=== PATIENT | male | born 1970 | race Hispanic/Latino ===

== ENCOUNTER 2018-05-08 15:50 | Emergency (ER) | payer OTHER, SELFPAY | END 2018-05-08 16:35 | disposition home or self-care (01) | LOC: NAV ERS 15:50 | DX: K42.9 Umbilical hernia without obstruction or gangrene (principal) | CPT/HCPCS: 99283 ==

== ENCOUNTER 2018-07-24 21:07 | Emergency (ER) | payer BC, SELFPAY | END 2018-07-24 21:50 | disposition home or self-care (01) | LOC: NAV ERS 21:07 | DX: L76.34 Postprocedural seroma of skin and subcutaneous tissue following other procedure (principal) | CPT/HCPCS: 87070; 87077; 87186; 87205; 99283 ==

== ENCOUNTER 2021-10-16 12:47 | Emergency (ER) | payer BC ==
[2021-10-16] MEDS ORDERED: Acetaminophen 325 MG TAB ONE (13:11)
[2021-10-16] MEDS ORDERED: Ibuprofen 200 MG TAB ONE (13:12)
[2021-10-16 13:35] LABS: #Basophils 0.1 thou/uL (0.0-0.2); #Monocytes 0.9 thou/uL (0.11-0.59); #Neutrophils 6.4 thou/uL (1.40-6.50); %Basophils 1.4 % (0.0-1.0); %Eosinophils 0.3 % (0.0-10.0); %Monocytes 10.4 % (0.0-10.0); %Neutrophils 75.9 % (42.0-75.0); Hemoglobin 15.3 g/dL (14.0-18.0); Mean Corpuscular HGB CONC 32.7 g/dL (32.0-36.0); Mean Corpuscular Hemoglobin 30.5 pg (27.0-31.0); Mean Corpuscular Volume 93.3 fL (78.0-98.0); Mean Platelet Volume 7.5 fL (7.4-10.4); Platelet Count 203 thou/uL (130-400); RBC Distribution Width 10.8 % (11.5-14.5); White Blood Cell (WBC) Count 8.4 thou/uL (4.8-10.8)
[2021-10-16 13:50] LABS: Bilirubin Negative (Negative); Blood, Urine Small (Negative); Clarity Clear (Clear); Glucose, Urine (Dipstick) Negative (Negative); Ketone, Urine Negative (Negative); Leukocyte Negative (Negative); Nitrite Negative (Negative); Protein, Urine (Dipstick) Negative (Neg-Trace); Specific Gravity, Urine 1.025 (1.005-1.030); Urobilinogen 0.2 mg/dL (Less than 2)
[2021-10-16 13:51] LABS: ALT (SGPT) 31 U/L (8-55); AST (SGOT) 26 U/L (5-34); Alkaline Phosphatase 69 U/L (40-110); Anion Gap 12 mmol/L (10-20); BUN (Urea Nitrogen) 9 mg/dL (8.4-25.7); Bilirubin, Total 0.5 mg/dL (0.2-1.2); Calc. Creatinine Clearance 0 mL/min (70-130); Calcium 9.3 mg/dL (7.8-10.44); Carbon Dioxide 24 mmol/L (22-29); Chloride 104 mmol/L (98-107); Globulin 4.1 g/dL (2.4-3.5); Glucose 135 mg/dL (70-105); Potassium 3.5 mmol/L (3.5-5.1); Protein, Total 8.1 g/dL (6.0-8.3); Sodium 136 mmol/L (136-145)
[2021-10-16 13:56] LABS: RBC/HPF 0-3 HPF (0-3); Squamous Epithelial 0-3 HPF (0-3); WBC/HPF None Seen HPF (0-3)
[2021-10-16 13:57] LABS: Bacteria/HPF Rare-Few HPF (None Seen)
[2021-10-16] MEDS ORDERED: Azithromycin 250 MG TAB ONE (14:56)
[2021-10-17 13:07] LABS: SARS-CoV-2 PCR by NAA DETECTED (NotDetected)
== END 2021-10-16 15:36 | disposition home or self-care (01) ==
LOC: NAV ERS 12:47
DX: U07.1 COVID-19 (principal)
CPT/HCPCS: 71045; 80053; 81003; 81015; 83605; 85025; 87804; 93005; 94760; U0003; U0005

== ENCOUNTER 2022-05-25 13:26 | Emergency (ER) | payer BC ==
[2022-05-25] MEDS ORDERED: Ibuprofen 200 MG TAB ONE (13:44)
== END 2022-05-25 13:57 | disposition home or self-care (01) ==
LOC: NAV ERS 13:26
DX: U07.1 COVID-19 (principal)
CPT/HCPCS: 99283; U0003; U0005

== ENCOUNTER 2022-07-14 18:13 | Emergency (ER) | payer OTHER, BC | END 2022-07-14 18:38 | disposition home or self-care (01) | LOC: NAV ERS 18:13 | DX: S40.812A Abrasion of left upper arm, initial encounter (principal); V89.2XXA Person injured in unspecified motor-vehicle accident, traffic, initial encounter; Y92.410 Unspecified street and highway as the place of occurrence of the external cause | CPT/HCPCS: 99283 ==